=== PATIENT | male | born 1945 | race African-American/Black ===

== ENCOUNTER 2021-09-14 19:15 | Inpatient (IN) | payer OTHER ==
[~2021-09-14] VITALS: Ht 177.8 cm; Wt 78.9 kg
[2021-09-14 22:48] LABS: BASOPHILS % 0.3 % (0.0-2.0); EOSINOPHILS % 0.1 % (0.0-5.0); HEMATOCRIT. 34.3 % (42.0-52.0); HEMOGLOBIN. 10.7 g/dL (14.0-18.0); LYMPHOCYTES % 8.6 % (20.0-50.0); MEAN CORPUSCULAR HEMOGLOBIN 26.3 pg (28.0-32.0); MEAN CORPUSCULAR VOLUME 84.6 fL (80.0-94.0); MONOCYTES % 6.7 % (2.0-8.0); NEUTROPHILS % 84.3 % (40.0-76.0); PLATELET 168 x1000/uL (130-400); RED BLOOD CELL COUNT 4.06 mill/uL (4.7-6.1); RED CELL DISTRIBUTION WIDTH 15.1 % (11.6-14.6)
[2021-09-14 22:56] LABS: CHLORIDE 108 mEq/L (98-107)
[2021-09-15 00:45] LABS: CLARITY URINE CLEAR (CLEAR); COLOR URINE YELLOW (YELLOW); KETONES URINE TRACE (NEGATIVE); LEUKOCYTE ESTERASE URINE NEGATIVE (NEGATIVE); NITRITE URINE NEGATIVE (NEGATIVE); OCCULT BLOOD URINE NEGATIVE (NEGATIVE); PROTEIN URINE 1+ (NEGATIVE); SPECIFIC GRAVITY URINE 1.021 (1.005-1.030); UROBILINOGEN URINE 0.2 E.U./dL (0.2-1.0)
[2021-09-15] MEDS ORDERED: DIPHENHYDRAMINE 50MG/ML VIAL IV PRN (09:15)
[2021-09-15] MEDS ORDERED: ONDANSETRON HCL 4MG/2ML INJ IV PRN (09:15)
[2021-09-15] MEDS ORDERED: ACETAMINOPHEN 325MG TABLET PO PRN (09:15)
[2021-09-15] MEDS: CLONIDINE 0.1MG TABLET PO PRN ×2 (10:00→17:06)
[2021-09-16 08:04] LABS: BASOPHILS % 0.7 % (0.0-2.0); HEMATOCRIT. 33.2 % (42.0-52.0); LYMPHOCYTES % 16.7 % (20.0-50.0); MEAN CORPUSCULAR HEMOGLOBIN 27.3 pg (28.0-32.0); MEAN CORPUSCULAR VOLUME 82.4 fL (80.0-94.0); MEAN PLATELET VOLUME 9.6 fl (7.4-10.4); MONOCYTES % 7.2 % (2.0-8.0); NEUTROPHILS % 74.4 % (40.0-76.0); PLATELET 199 x1000/uL (130-400); RED BLOOD CELL COUNT 4.04 mill/uL (4.7-6.1); RED CELL DISTRIBUTION WIDTH 14.5 % (11.6-14.6)
[2021-09-16 08:11] LABS: CHLORIDE 104 mEq/L (98-107)
[2021-09-16] MEDS: CLONIDINE 0.1MG TABLET PO PRN ×2 (09:39→17:29)
[2021-09-16 12:00] VITALS: BP 167/52
[2021-09-16] MEDS ORDERED: AMLO5TAB4 MT (12:48)
[2021-09-16] MEDS ORDERED: CYCL1DRO6 OP (12:48)
[2021-09-16] MEDS ORDERED: DORZ1DRO5 EACHEYE (12:48)
[2021-09-16] MEDS ORDERED: INSU100V40 SUBCUT (12:48)
[2021-09-16] MEDS ORDERED: ASPI-1497 MT (12:48)
[2021-09-16] MEDS ORDERED: DOCU50LI25 MT (12:48)
[2021-09-16] MEDS ORDERED: BOSU100T MT (12:48)
[2021-09-16] MEDS ORDERED: CARB-31 PO (12:48)
[2021-09-16] MEDS ORDERED: XALAO EACHEYE (12:48)
[2021-09-16] MEDS ORDERED: LOSA50TA41 MT (12:48)
[2021-09-16] MEDS ORDERED: FINA5TAB11 MT (12:48)
[2021-09-16] MEDS: INSULIN LISPRO 100 UNITS/ML SUBCUT SCH ×3 (12:55→20:58)
[2021-09-16] MEDS ORDERED: DEXTROSE 50% WATER 50ML SYRINGE IV PRN (13:00)
[2021-09-16 16:00] VITALS: BP 173/59
[2021-09-16] MEDS: BLOOD SUGAR DIAGNOSTIC STRIP TEST SCH ×2 (17:20→20:58)
[2021-09-16] MEDS ORDERED: TAMS-11 MT (19:23)
[2021-09-16] MEDS ORDERED: METF-873 MT (19:23)
[2021-09-16 20:00] VITALS: BP 108/61
[2021-09-16] MEDS: AMLODIPINE 5MG TABLET PO SCH (20:58)
[2021-09-17] VITALS: BP 135/72
[2021-09-17 04:00] VITALS: BP 155/82
[2021-09-17] MEDS: INSULIN LISPRO 100 UNITS/ML SUBCUT SCH ×3 (05:56→17:06)
[2021-09-17] MEDS: BLOOD SUGAR DIAGNOSTIC STRIP TEST SCH ×3 (05:56→17:06)
[2021-09-17 08:00] VITALS: BP 159/72
[2021-09-17] MEDS: AMLODIPINE 5MG TABLET PO SCH (08:58)
[2021-09-17 11:27] LABS: BASOPHILS % 0.6 % (0.0-2.0); EOSINOPHILS % 0.8 % (0.0-5.0); HEMATOCRIT. 34.5 % (42.0-52.0); HEMOGLOBIN. 11.2 g/dL (14.0-18.0); LYMPHOCYTES % 14.6 % (20.0-50.0); MEAN CORPUSCULAR HEMOGLOBIN 26.7 pg (28.0-32.0); MEAN CORPUSCULAR VOLUME 81.9 fL (80.0-94.0); MEAN PLATELET VOLUME 10.6 fl (7.4-10.4); MONOCYTES % 7.1 % (2.0-8.0); NEUTROPHILS % 76.9 % (40.0-76.0); PLATELET 201 x1000/uL (130-400); RED BLOOD CELL COUNT 4.21 mill/uL (4.7-6.1); RED CELL DISTRIBUTION WIDTH 14.3 % (11.6-14.6)
[2021-09-17 11:39] LABS: CHLORIDE 105 mEq/L (98-107)
[2021-09-17 12:00] VITALS: BP 175/74
[2021-09-17 15:36] VITALS: BP 155/79
[2021-09-17 16:00] VITALS: BP 151/54
[2021-09-17] MEDS: CLONIDINE 0.1MG TABLET PO PRN (16:28)
== END 2021-09-17 17:30 | disposition home or self-care (01) | DRG 312 ==
LOC: ER 19:15 → MICUSO 09-15 23:58 → 7WST 09-16 11:10
PROVIDERS: ADMIT Internal Medicine; ATTEND Internal Medicine
DX: R55 Syncope and collapse (principal); U07.1 COVID-19; I10 Essential (primary) hypertension; E11.9 Type 2 diabetes mellitus without complications; R94.31 Abnormal electrocardiogram [ECG] [EKG]; E86.0 Dehydration; G93.89 Other specified disorders of brain; S00.03XA Contusion of scalp, initial encounter; W18.39XA Other fall on same level, initial encounter; Z87.820 Personal history of traumatic brain injury; Z78.9 Other specified health status; Z83.3 Family history of diabetes mellitus; Z87.891 Personal history of nicotine dependence; Y93.89 Activity, other specified; Y92.89 Other specified places as the place of occurrence of the external cause; Y99.8 Other external cause status
CPT/HCPCS: 36415; 71045; 80048; 80053; 81003; 82962; 83036; 84443; 84484; 85025; 86140; 87426; 93005; 93970; 96374; 99285; J1200; J2405

== ENCOUNTER 2023-02-13 17:47 | Emergency (ER) | payer OTHER ==
[~2023-02-13] VITALS: Ht 180.3 cm; Wt 82.0 kg
[~2023-02-13 17:47] MED LIST: AMLO5TAB4 MT; ASPI-1497 MT; BOSU100T MT; CARB-31 PO; CYCL1DRO6 OP; DOCU50LI25 MT; DORZ1DRO12 EACHEYE; FINA5TAB11 MT; INSU100V40 SUBCUT; LOSA50TA41 MT; METF-873 MT; TAMS-11 MT; XALAO EACHEYE
[2023-02-13] MEDS ORDERED: IOHEXOL-350 100 ML BOTTLE ONE (18:30)
[2023-02-13 18:59] LABS: CHLORIDE 103 mEq/L (98-107)
[2023-02-13] MEDS ORDERED: ATORVASTATIN CALCIUM 40MG TABLET PO SCH (19:00)
[2023-02-13] MEDS ORDERED: ASPIRIN 325MG EC TABLET PO ONE (19:00)
[2023-02-13 19:01] LABS: BASOPHILS % 0.2 % (0.0-2.0); EOSINOPHILS % 0.1 % (0.0-5.0); HEMATOCRIT. 27.5 % (42.0-52.0); HEMOGLOBIN. 8.9 g/dL (14.0-18.0); LYMPHOCYTES % 7.2 % (20.0-50.0); MEAN CORPUSCULAR HEMOGLOBIN 25.2 pg (28.0-32.0); MEAN CORPUSCULAR VOLUME 77.9 fL (80.0-94.0); MEAN PLATELET VOLUME 9.8 fl (7.4-10.4); MONOCYTES % 9.2 % (2.0-8.0); NEUTROPHILS % 83.3 % (40.0-76.0); PLATELET 195 x1000/uL (130-400); RED BLOOD CELL COUNT 3.53 mill/uL (4.7-6.1); RED CELL DISTRIBUTION WIDTH 18.8 % (11.6-14.6)
[2023-02-13 19:03] LABS: PROTHROMBIN TIME 10.6 sec (9.6-11.0)
[2023-02-13 19:10] LABS: ETHANOL BLOOD < 10 mg/dL (-10)
[2023-02-13] MEDS ORDERED: ATORVASTATIN CALCIUM 40MG TABLET PO NR (19:45)
[2023-02-13 22:02] VITALS: BP 176/69
== END 2023-02-13 22:36 | disposition short-term general hospital (02) ==
LOC: ER 17:47 → EDBEDREQTM 18:04 → EDBEDREQ 18:04 → EDBEDREQSVC 18:04 → CANBEDREQ 21:53 → ER 22:36
DX: I63.9 Cerebral infarction, unspecified (principal); R53.1 Weakness; Z20.822 Contact with and (suspected) exposure to COVID-19; E11.9 Type 2 diabetes mellitus without complications; I10 Essential (primary) hypertension; Z79.899 Other long term (current) drug therapy
CPT/HCPCS: 36415; 70450; 70496; 70498; 71045; 80053; 80320; 84484; 85025; 85610; 87426; 93005; 99291; C9803; Q9967; G0480

== ENCOUNTER 2023-07-29 14:12 | Emergency (ER) | payer OTHER ==
[~2023-07-29] VITALS: Ht 177.8 cm; Wt 79.0 kg
[2023-07-29 14:22] VITALS: O2SAT 98
[2023-07-29] MEDS ORDERED: ONDANSETRON HCL 4MG/2ML INJ IV ONE (14:30)
[2023-07-29] MEDS ORDERED: MORPHINE SULFATE 4 MG/ML CPJ (NOT FOR IM USE) IV ONE (14:30)
[2023-07-29 16:39] LABS: MEAN CORPUSCULAR HEMOGLOBIN 23.6 pg (28.0-32.0); MEAN CORPUSCULAR HGB CONC 31.3 g/dL (31.0-37.0); MEAN CORPUSCULAR VOLUME 75.6 fL (80.0-94.0); MEAN PLATELET VOLUME 10.3 fl (7.4-10.4); PLATELET 199 x1000/uL (130-400); RED CELL DISTRIBUTION WIDTH 17.3 % (11.6-14.6)
[2023-07-29 16:42] LABS: DIFFERENTIAL COMMENT 1
[2023-07-29 16:44] LABS: HEMATOCRIT. 21.1 % (42.0-52.0); HEMOGLOBIN. 6.6 g/dL (14.0-18.0)
[2023-07-29 16:53] LABS: PROTHROMBIN TIME 10.8 sec (9.6-11.0)
[2023-07-29 17:02] LABS: ANISOCYTOSIS 1+; HYPOCHROMASIA 1+; MICROCYTOSIS 1+; PLATELET ESTIMATE NORMAL
[2023-07-29 17:09] LABS: ALANINE AMINOTRANSFERASE 7 IU/L (10-49); ALBUMIN 3.9 g/dL (3.2-4.8); ASPARTATE AMINOTRANSFERASE 22 IU/L (<34); BILIRUBIN TOTAL 0.4 mg/dL (0.1-1.0); CALCIUM 8.8 mg/dL (8.7-10.4); CARBON DIOXIDE 22 mEq/L (21-32); CHLORIDE 107 mEq/L (98-107); GLUCOSE 134 mg/dL (70-105); POTASSIUM 4.2 mEq/L (3.5-5.1); PROTEIN TOTAL 7.4 g/dL (6.0-8.3); SODIUM 137 mEq/L (136-145); TROPONIN I HIGH SENSITIVITY 13 ng/L (3.0-53); UREA NITROGEN BLOOD 15 mg/dL (9-23)
[2023-07-29] MEDS ORDERED: CEFEPIME 2,000 MG in DEXT 5% WATER 100 ML IV ONE (20:30)
[2023-07-29] MEDS ORDERED: VANCOMYCIN 1.5GM/250ML IVPB 250 ML IV NR (22:00)
[2023-07-29 22:43] LABS: CLARITY URINE CLEAR (CLEAR); COLOR URINE YELLOW (YELLOW)
[2023-07-29 22:46] LABS: GLUCOSE URINE NEGATIVE (NEGATIVE); KETONES URINE NEGATIVE (NEGATIVE); LEUKOCYTE ESTERASE URINE NEGATIVE (NEGATIVE); NITRITE URINE NEGATIVE (NEGATIVE); OCCULT BLOOD URINE NEGATIVE (NEGATIVE); PROTEIN URINE 1+ (NEGATIVE)
[2023-07-29 22:49] LABS: BACTERIA URINE NONE SEEN; RBC URINE NONE SEEN /hpf (0-2); SQUAMOUS EPITHELIAL CELL URINE NONE SEEN /lpf (RARE/1+); WBC URINE NONE SEEN /hpf (0-2); YEAST URINE NONE SEEN
[2023-07-30 03:00] VITALS: BP 159/55; PULSE 72; RESP 19; TEMP 99.5
== END 2023-07-30 03:47 | disposition short-term general hospital (02) ==
LOC: ER 14:12
DX: D64.9 Anemia, unspecified (principal); N20.0 Calculus of kidney; J18.9 Pneumonia, unspecified organism; E11.9 Type 2 diabetes mellitus without complications; I10 Essential (primary) hypertension; I25.2 Old myocardial infarction; Z85.9 Personal history of malignant neoplasm, unspecified; Z79.899 Other long term (current) drug therapy
CPT/HCPCS: 99291; 71260; 96365; 71045; 96367; 96375; 80053; 81003; 83880; 83605; 83690; 85025; 85610; 86850; 86900; 86901; 86920; 87040; 87086; 84484; 36415; 84145; 74177; 93005; J3370; J0692; J2405; J7060; J2270; P9016

== ENCOUNTER 2025-08-05 07:54 | Emergency (ER) | payer MEDICARE, OTHER ==
[~2025-08-05] VITALS: Ht 177.8 cm; Wt 82.0 kg
[~2025-08-05 07:54] MED LIST changes: -AMLO5TAB4 MT; +AMLO5TAB6 MT; +CEFP200T13 PO; +CLOP-31 PO; +LENA10CA PO; +METF-1149 MT; -METF-873 MT; +ROSU40TA MT; -TAMS-11 MT; +TAMS-54 MT
[2025-08-05 07:55] VITALS: O2SAT 96
[2025-08-05 09:48] LABS: HEMATOCRIT. 23.9 % (42.0-52.0); HEMOGLOBIN. 7.5 g/dL (14.0-18.0); MEAN PLATELET VOLUME 8.7 fl (7.4-10.4); PLATELET 388 x1000/uL (130-400); RED BLOOD CELL COUNT 2.99 mill/uL (4.7-6.1); RED CELL DISTRIBUTION WIDTH 16.7 % (11.6-14.6)
[2025-08-05 10:00] LABS: CREATININE 1.0 mg/dL (0.6-1.3)
[2025-08-05 10:01] LABS: UREA NITROGEN BLOOD 12 mg/dL (9-23)
[2025-08-05 10:03] LABS: TROPONIN I HIGH SENSITIVITY 15 ng/L (3.0-53)
[2025-08-05 11:04] LABS: TROPONIN I HIGH SENSITIVITY 14 ng/L (3.0-53)
[2025-08-05] MEDS: CEFTRIAXONE 1GM/50ML 50 ML IV ONE (11:13)
[2025-08-05] MEDS: AZITHROMYCIN 500MG/250ML 250 ML IV STA (11:13)
[2025-08-05 11:38] LABS: EOSINOPHILS % MANUAL 1.0 % (0.0-5.0); LYMPHOCYTES % MANUAL 5.0 % (20.0-50.0); MONOCYTES % MANUAL 3.0 % (2.0-8.0); NEUTROPHILS % MANUAL 91.0 % (45.0-75.0); PLATELET ESTIMATE NORMAL
[2025-08-05] MEDS ORDERED: HYDROCODONE/ACETAMINOPHEN 5/325MG TABLET PO PRN (12:15)
[2025-08-05] MEDS ORDERED: CLONIDINE 0.1MG TABLET PO PRN (12:15)
[2025-08-05] MEDS ORDERED: ONDANSETRON HCL 4MG/2ML INJ IV PRN (12:15)
[2025-08-05] MEDS ORDERED: ZOLPIDEM TARTRATE 5MG TABLET PO PRN (12:15)
[2025-08-05] MEDS ORDERED: MAGNESIUM/ALUMINUM HYDROXIDE/SIMETHICONE 30ML UDC PO PRN (12:15)
[2025-08-05] MEDS ORDERED: ACETAMINOPHEN 325MG TABLET PO PRN (12:15)
[2025-08-05 12:26] VITALS: TEMP 36.9
[2025-08-05] MEDS ORDERED: DEXTROSE 50% WATER 50ML SYRINGE IV PRN (12:30)
[2025-08-05] MEDS ORDERED: BLOOD SUGAR DIAGNOSTIC STRIP TEST SCH (13:00)
[2025-08-05] MEDS ORDERED: ENOXAPARIN 40MG/0.4ML SYR SUBCUT SCH (13:00)
[2025-08-05] MEDS ORDERED: LOSARTAN 50 MG TABLET PO SCH ×2 (13:00)
[2025-08-05 13:05] VITALS: BP 150/46; PULSE 62; RESP 15; O2SAT 97
[2025-08-05] MEDS ORDERED: INSULIN LISPRO 100 UNITS/ML SUBCUT SCH (13:20)
[2025-08-05] MEDS ORDERED: CEFEPIME 1GM/50ML 50 ML IV SCH (14:00)
[2025-08-05] MEDS ORDERED: CARBIDOPA/LEVODOPA 10/100MG TABLET PO SCH (14:00)
[2025-08-05] MEDS ORDERED: LATANOPROST 0.005% OPHTH DROPS 2.5ML EACHEYE SCH (21:00)
[2025-08-05] MEDS ORDERED: TAMSULOSIN HCL 0.4MG SR CAPSULE PO SCH (21:00)
[2025-08-05] MEDS ORDERED: FINASTERIDE 5MG TABLET PO SCH (21:00)
[2025-08-05] MEDS ORDERED: ATORVASTATIN CALCIUM 20MG TABLET PO SCH (21:00)
[2025-08-06] MEDS ORDERED: ASPIRIN 81MG EC TABLET PO SCH (09:00)
[2025-08-06] MEDS ORDERED: AMLODIPINE 5MG TABLET PO SCH (09:00)
[2025-08-06] MEDS ORDERED: CLOPIDOGREL 75MG TABLET PO SCH (09:00)
[2025-08-06] MEDS ORDERED: PANTOPRAZOLE SODIUM 40 MG/VIAL IV SCH (09:00)
== END 2025-08-05 13:30 | disposition short-term general hospital (02) ==
LOC: ER 07:54 → CMPBEDREQ 13:39
DX: R55 Syncope and collapse (principal); J90 Pleural effusion, not elsewhere classified; E11.9 Type 2 diabetes mellitus without complications; Z88.0 Allergy status to penicillin; Z91.040 Latex allergy status
CPT/HCPCS: 99285; 96365; 70450; 71045; 80048; 85025; 87040; 36415; 84484; 93005; 96368; J0456; J0696; A4615; J0692